=== PATIENT | female | born 1950 | race Caucasian/White ===

== ENCOUNTER 2023-10-24 16:05 | Emergency (ER) | payer OTHER ==
[2023-10-24 17:09] LABS: HEMATOCRIT 36.3 % (32.4-45.2); MCH 25.6 pg (25.7-33.7); MEAN CELL VOLUME 77.5 fl (80-96); MEAN PLT VOLUME 8.2 fl (7.5-11.1); PLATELET COUNT 410 10^3/uL (134-434); RBC 4.69 M/mm3 (3.60-5.2); RDW 16.5 % (11.6-15.6)
[2023-10-24 17:12] LABS: WHITE BLOOD COUNT 31.5 K/mm3 (4.0-10.0)
[2023-10-24 17:15] LABS: INR 1.38 (0.83-1.09); PROTHROMBIN TIME (PATIENT) 15.9 SEC (9.7-13.0)
[2023-10-24 17:18] VITALS: BMI 28.3
[2023-10-24 17:18] LABS: ACTIVATED PTT 30.7 SECONDS (25.2-36.5)
[2023-10-24 17:30] LABS: POTASSIUM 4.1 mmol/L (3.5-5.1)
[2023-10-24 17:32] LABS: CALCIUM 9.1 mg/dL (8.5-10.1)
[2023-10-24 17:33] LABS: ALBUMIN 2.6 g/dl (3.4-5.0)
[2023-10-24 17:34] LABS: BLOOD UREA NITROGEN 27.8 mg/dL (7-18)
[2023-10-24 17:37] LABS: TOT PROT 7.5 g/dl (6.4-8.2)
[2023-10-24 17:38] LABS: BILIRUBIN,TOTAL 1.1 mg/dL (0.2-1)
[2023-10-24 18:27] LABS: EPI CELLS 30 /uL (0-25.1); HYALINE CASTS 2 /uL (0-3.1); PH,URINE 5.5 (5.0-8.0); URINE APPEARANCE CLEAR; URINE BACTERIA 0 /uL (0-1359); URINE BILIRUBIN NEGATIVE (NEGATIVE); URINE COLOR DK YELLOW; URINE GLUCOSE (UA) NEGATIVE (NEGATIVE); URINE KETONE NEGATIVE (NEGATIVE); URINE LEUK ESTERASE NEGATIVE (NEGATIVE); URINE NITRITE NEGATIVE (NEGATIVE); URINE PROTEIN 3+ (NEGATIVE); URINE RBC 14 /uL (0-23.9); URINE UROBILINOGEN 0.2 mg/dL (0.2-1.0); URINE WBC 17 /uL (0-25.8)
[2023-10-24] MEDS ORDERED: ACETAMINOPHEN INJECTION 100 ML IVPB ONE (18:41)
[2023-10-24] MEDS: ACETAMINOPHEN 1000 MG/100 ML BAG IVPB ONE (18:49)
[2023-10-24] MEDS: SODIUM CHLORIDE 0.9% 1000 ML INFUS.BAG IV STA (18:49)
[2023-10-24 18:56] LABS: LACTIC ACID 2.4 mmol/L (0.4-2.0)
[2023-10-24] MEDS ORDERED: PIPERACILLIN/TAZOB 3.375 GM 3.375 GM/50 ML BAG IVPB ONE (18:57)
[2023-10-24] MEDS: PIPERACILLIN/TAZOB 3.375 GM 3.375 GM in DEXTROSE 5%-WATER - 50 ML IVPB ONE (18:57)
[2023-10-24] MEDS ORDERED: VANCOMYCIN 1 GRAM (PRE-DOCKED) 1,000 MG/250 ML BAG IVPB ONE (20:08)
[2023-10-24] MEDS: VANCOMYCIN 1,000 MG in DEXTROSE 5%-WATER - 250 ML IVPB ONE (20:19)
[2023-10-24 21:08] VITALS: TEMP 99.4
[2023-10-24] MEDS: CEFTRIAXONE 2 GM-D5W BAG 2 GM/50 ML BAG IVPB ONE (21:16)
[2023-10-24] MEDS ORDERED: CEFTRIAXONE 2 GM/100 ML BAG IVPB ONE (21:33)
[2023-10-24 21:54] VITALS: BP 162/60; PULSE 90; RESP 20
== END 2023-10-24 21:55 | disposition short-term general hospital (02) ==
LOC: JER 16:05
PROC: 3E03329 Introduction of Other Anti-infective into Peripheral Vein, Percutaneous Approach (ICD-10-PCS; principal; 2023-10-24)
PROC: 3E03329 Introduction of Other Anti-infective into Peripheral Vein, Percutaneous Approach (ICD-10-PCS; 2023-10-24)
PROC: 3E03329 Introduction of Other Anti-infective into Peripheral Vein, Percutaneous Approach (ICD-10-PCS; 2023-10-24)
PROC: 3E033NZ Introduction of Analgesics, Hypnotics, Sedatives into Peripheral Vein, Percutaneous Approach (ICD-10-PCS; 2023-10-24)
DX: I63.9 Cerebral infarction, unspecified (principal); R09.81 Nasal congestion; H02.846 Edema of left eye, unspecified eyelid; R47.01 Aphasia; I60.9 Nontraumatic subarachnoid hemorrhage, unspecified; R51.9 Headache, unspecified; A41.9 Sepsis, unspecified organism; G93.41 Metabolic encephalopathy; R41.82 Altered mental status, unspecified; N10 Acute pyelonephritis; Z20.822 Contact with and (suspected) exposure to COVID-19
CPT/HCPCS: 0241U-QW; 36415; 70450-TC; 70496-TC; 70498-TC; 71045-TC-FY; 80053; 80061; 81003; 82550; 82553; 82962; 83036; 83605; 83735; 84484; 85025; 85610; 85730; 86850; 86900; 86901; 87040; 87086; 93005; 93010; 96365; 96367; 96368; 96375; 99285-25; J0131